=== PATIENT | female | born 1980 | race African-American/Black ===

== ENCOUNTER 2017-10-25 17:51 | Emergency (ER) | payer OTHER ==
--- NOTE | 2017-10-25 17:55 | PDOC ---
Rapid Medical Evaluation Time Seen by Provider: 10/25/17 17:53 Medical Evaluation: I have performed a brief in-person evaluation of this patient. The patient presents with a chief complaint of: atraumatic left knee pain x 3 days. She has been taking 600mg of motrin every 4 hours but the pain comes back after the medicine wears off. Pertinent physical exam findings: patient with mild limp I have ordered the following: hcg The patient will proceed to the ED for further evaluation. Discharge Disposition - Diagnosis Knee pain, left Qualifiers: Chronicity: acute Qualified Code(s): M25.562 - Pain in left knee - Referrals - Patient Instructions - Post Discharge Activity
[2017-10-25 17:56] VITALS: BP 146/87; PULSE 78; TEMP 99.1; BMI 32.1
--- NOTE | 2017-10-25 18:44 | PDOC ---
History of Present Illness - General Chief Complaint: Pain, Acute Stated Complaint: KNEE INJURY Time Seen by Provider: 10/25/17 17:53 - History of Present Illness Initial Comments: 37-year-old female presents for evaluation of atraumatic left knee pain 3 days. She denies any associated symptoms. She points to the anterior aspect of her left knee as the area of the discomfort. She describes her pain as achy exacerbated with motion and weightbearing only with rest and free of radiation. No prior problems with left knee 10/25/17 18:38 Past History - Past Medical History Allergies/Adverse Reactions: Allergies Allergy/AdvReac Type Severity Reaction Status Date / Time No Known Allergies Allergy Verified 10/25/17 17:53 Home Medications: Ambulatory Orders NK [No Known Home Medication] 10/25/17 COPD: No DVT: No Dementia: No Diabetes: No - Surgical History Cholecystectomy: Yes - Immunization History Immunization Up to Date: Yes - Suicide/Smoking/Psychosocial Hx Smoking History: Never smoked Have you smoked in the past 12 months: No Information on smoking cessation initiated: No Hx Alcohol Use: No Drug/Substance Use Hx: No Substance Use Type: None Review of Systems - Review of Systems Comments:: 10/25/17 18:39 GENERAL/CONSTITUTIONAL: [No fever or chills. No weakness. No weight change.] HEAD, EYES, EARS, NOSE AND THROAT: [No change in vision. No ear pain or discharge. No sore throat.] CARDIOVASCULAR: [No chest pain or shortness of breath.] RESPIRATORY: [No cough, wheezing, or hemoptysis.] GASTROINTESTINAL: [No nausea, vomiting, diarrhea or constipation. No rectal bleeding.] GENITOURINARY: [No dysuria, frequency, or change in urination.] MUSCULOSKELETAL: [+ L knee pain pain. No neck or back pain.] SKIN AND BREASTS: [No rash or easy bruising.] NEUROLOGIC: [No headache, vertigo, loss of consciousness, or loss of sensation.] PSYCHIATRIC: [No depression or anxiety.] ENDOCRINE: [No increased thirst. No abnormal weight change.] HEMATOLOGIC/LYMPHATIC: [No anemia, easy bleeding, or history of blood clots.] ALLERGIC/IMMUNOLOGIC: [No hives or skin allergy. No latex allergy.] *Physical Exam - Vital Signs Last Vital Signs Temp Pulse Resp BP Pulse Ox 99.1 F 78 16 146/87 99 05/11/18 17:53 10/25/17 17:53 10/25/17 17:53 10/25/17 17:53 10/25/17 17:53 - Physical Exam Comments: Knee skin color and temperature are normal. There is no palpable effusion. Range of motion is decreased 0-90 and nonpainful. There is medial or lateral joint line tenderness. No patellofemoral crepitation. No evidence of instability. Thigh and calf are soft and nontender. There are no gross sensory motor deficits. 10/25/17 18:40 ED Treatment Course - ADDITIONAL ORDERS Additional order review: Laboratory Results 10/25/17 17:55 Urine HCG, Qual Negative *DC/Admit/Observation/Transfer Diagnosis at time of Disposition: Knee pain, left Qualifiers: Chronicity: acute Qualified Code(s): M25.562 - Pain in left knee - Discharge Dispostion Disposition: HOME Condition at time of disposition: Stable Decision to Admit order: No - Referrals Referrals: Trini Ceja MD [Primary Care Provider] - Jose Chaney MD [Staff Physician] - - Patient Instructions Printed Discharge Instructions: DI for Knee Pain, DI for Patellofemoral Pain Syndrome-Adult Additional Instructions: He had no trauma. There may be a number of issues with your knee which should be worked up by an orthopedic surgeon follow-up with the orthopedic surgeon in 1 -2 days return to the emergency room if her symptoms worsen or go unresolved prior to follow up - Post Discharge Activity
== END 2017-10-25 18:54 | disposition home or self-care (01) ==
LOC: JERFT 17:51
DX: M25.562 Pain in left knee (principal)
CPT/HCPCS: 84703; 99281-25

== ENCOUNTER 2022-11-13 07:55 | Emergency (ER) | payer OTHER ==
[2022-11-13 08:02] VITALS: BMI 77.0
[2022-11-13] MEDS ORDERED: ACETAMINOPHEN 500 MG TABLET (FP) PO ONE (08:37)
[2022-11-13] MEDS ORDERED: ACETAMINOPHEN 325 MG TABLET (FP) ONE (08:43)
[2022-11-13 09:01] LABS: PH,URINE 8.5 (5.0-8.0); URINE APPEARANCE CLEAR; URINE BILIRUBIN NEGATIVE (NEGATIVE); URINE COLOR YELLOW; URINE GLUCOSE (UA) NEGATIVE (NEGATIVE); URINE KETONE NEGATIVE (NEGATIVE); URINE LEUK ESTERASE NEGATIVE (NEGATIVE); URINE NITRITE NEGATIVE (NEGATIVE); URINE PROTEIN NEGATIVE (NEGATIVE); URINE UROBILINOGEN 0.2 mg/dL (0.2-1.0)
[2022-11-13 09:03] LABS: HCG,QUALITATIVE URINE Negative
[2022-11-13] MEDS ORDERED: KETOROLAC TROMETHAMINE 30 MG/1 ML VIAL IM ONE (09:04)
[2022-11-13] MEDS ORDERED: METHOCARBAMOL 500 MG TABLET PO ONE (09:04)
[2022-11-13] MEDS ORDERED: LIDOCAINE 5% TOPICAL PATCH TP ONE (09:04)
[2022-11-13] MEDS ORDERED: KETOROLAC TROMETHAMINE 30 MG/1 ML VIAL ONE (09:07)
[2022-11-13] MEDS ORDERED: METHOCARBAMOL 500 MG TABLET ONE (09:07)
[2022-11-13] MEDS ORDERED: LIDOCAINE 5% TOPICAL PATCH ONE (09:07)
[2022-11-13 10:33] VITALS: BP 127/83; PULSE 60; RESP 20; TEMP 98.7
[2022-11-13] MEDS ORDERED: LIDOCAINE PATCH REMOVAL MC SCH (22:00)
== END 2022-11-13 10:35 | disposition home or self-care (01) ==
LOC: JER 07:55
PROC: 3E0233Z Introduction of Anti-inflammatory into Muscle, Percutaneous Approach (ICD-10-PCS; principal; 2022-11-13)
DX: M54.50 Low back pain, unspecified (principal); M54.16 Radiculopathy, lumbar region
CPT/HCPCS: 81003; 84703; 99284-25